=== PATIENT | male | born 1980 | race Caucasian/White ===

== ENCOUNTER 2024-06-08 07:42 | Emergency (ER) | payer BC, SELFPAY ==
[2024-06-08 07:46] VITALS: BP 132/88
[2024-06-08 08:01] VITALS: BMI 32.6
--- NOTE | 2024-06-08 08:09 | ED.GENMED ---
History of Present Illness
General
Chief Complaint: Flank Pain
Source: patient
Exam Limitations: none
Time Seen by Provider: 06/08/24 08:01
History of Present Illness
History of Present Illness:
See MDM
Past History
Past History
ED Past Medical History: Other (Kidney stones)
ED Past Surgical History: None
Social History
Tobacco: Non-smoker
Alcohol: None
Phy Exam
Physical Exam
Physical Exam:
See MDM
Course
Orders/Labs/Results
Orders:
Orders
06/08/24 08:06
CT Abd/pel Without Iv Or Oral Urgent
Comment:
Reason For Exam: Left flank pain
06/08/24 08:08
Ketorolac [Toradol] 30 mg IM NOW STA
Ondansetron Orally Disint [Zofran Odt (Orally Disintegrating)] 4 mg PO NOW STA
Oxycodone/Acetaminophen [Percocet 5/325] 1 tablet PO NOW STA
Tamsulosin [Flomax] 0.4 mg PO NOW STA
06/08/24 08:09
Ketorolac [Toradol] 30 mg .ROUTE .STK-MED ONE
06/08/24 08:10
Oxycodone/Acetaminophen [Percocet 5/325] 1 tablet .ROUTE .STK-MED ONE
Tamsulosin [Flomax] 0.4 mg .ROUTE .STK-MED ONE
06/08/24 08:17
Urinalysis Reflex To Culture Urgent
Date Specimen was Collected: 06/08/24
Time Specimen was Collected: 08:02
Urine Microscopic Reflex Cult Urgent
Abnormal Lab Results
06/08/24
08:17
Ur Occult Blood Reflex 4+ A
(Negative)
Urine Urobilinogen 2+ A
(Neg - 1+)
06/08/24 08:02
06/08/24 08:02
Vital Signs
Initial and Last Documented VS:
Initial Vital Signs
Temp Pulse Resp BP Pulse Ox
97.5 F 70 16 132/88 98
06/08/24 07:46 06/08/24 07:46 06/08/24 07:46 06/08/24 07:46 06/08/24 07:46
Last Documented Vital Signs
Temp Pulse Resp BP Pulse Ox
97.5 F 64 15 116/63 98
06/08/24 07:46 06/08/24 08:43 06/08/24 08:43 06/08/24 08:43 06/08/24 07:46
MDM/Problems Addressed
Differential Diagnosis Includes:
HPI and MDM Narrative:
44-year-old male presenting with left flank pain. This started earlier this morning. Patient has had kidney stones in the past and states this is very similar presentation. He does note some mild nausea. He has increased urinary frequency but
denies dysuria. Denies fevers. On exam, he is somewhat uncomfortable. He does have left CVA tenderness. Will obtain CT looking for evidence of kidney stone. Will obtain urinalysis.
Physical exam
General: Mildly uncomfortable but ambulating without difficulty
HEENT: protecting airway
Neck: appears supple
CV: No evidence of cyanosis
Resp: No accessory muscle use
Abd: Non-distended
Back: Mild left CVA tenderness. No rash noted
Extremities: No deformities
Neuro: alert
Psych: Normal affect
Skin: Intact
Problems Addressed including Acute and Chronic Conditions affecting care:
1. Left flank pain
Acuity: acute
Prognosis: stable
Details: Given the acute onset and the presentation, likely obstructive kidney stone. Will obtain CT and provide pain medicine
Updates
CT consistent with distal ureteral stone. There is mild hydro. Reexamination, patient feeling much better and feels comfortable. Discussed follow-up with urology
Differential Diagnosis (but not limited to): Kidney stone, pyelonephritis, renal colic
Testing considered: KUB
Drug therapy (if applicable): OTC meds, please see d/c instruction regarding Rx drugs
Amount and/or Complexity of Data Reviewed
Clinical info obtained from: Patient
External data reviewed: N/A
Labs I independently reviewed (but not limited to): UA
Radiology: The CT scan was personally and independently reviewed. In addition, official CT report reviewed.
Pulse Ox: not hypoxic
EKG independently reviewed: N/A
Steel Erector: N/A
Critical Care: N/A
Risk of Complication:
Social Determinants of health: Good social support
Discussed with other providers: N/A
Escalation of Care includes Admit/Obs: After being observed in the Emergency Department, pt stable for discharge.
Occasional wrong word or 'sound a like' substitutions may have occurred due to the inherent limitations of voice recognition software. Read the chart carefully and recognize, using context, where substitutions have occurred.
*Critical Care Note
Total Time (30-74mins, 75-104mins- exclusive of procedures): Not Applicable
ED Attending Note
-
Portions of this chart may have been created with voice recognition software.� Occasional wrong word or��sound alike� substitutions may have occurred due to the inherent limitations of voice recognition software.
Discharge Plan
Departure
Patient Disposition: Home (Routine Discharge)
Date of Disposition: 06/08/24
Time of Disposition: 09:22
Patient with high blood pressure during this ER visit?: No
Discharge Problem:
Kidney stone on left side
Instructions: Kidney Stones (DC)
Prescriptions:
New
tamsulosin [Flomax] 0.4 mg Capsule
0.4 mg PO DAILY Qty: 14 0RF
diclofenac potassium 50 mg tablet
50 mg PO BID Qty: 20 0RF
ondansetron 4 mg Tablet,Disintegrating
4 mg PO BIDPRN PRN (Reason: nausea/vomiting) Qty: 10 0RF
oxycodone 5 mg tablet
5 mg PO Q8H PRN (Reason: Pain) Qty: 7 0RF
Referrals:
Alverto Huber, [Family Provider] -
Stand Alone Forms: Return to Work
Activity Restrictions/Additional Instructions:
Please return for any worsening symptoms.
You may return at any time if you have further concerns.
Please follow up with your urologist.
Interventions
Interventions:
*Risk Screen - Suicide Last Done: 06/08/24 07:46
*General Assessment Last Done: 06/08/24 07:46
*Neglect/Abuse Screening Last Done: 06/08/24 07:46
ED- Fall Risk Assessment Last Done: 06/08/24 08:20
*ED COVID-19 Vaccine History Last Done: 06/08/24 07:46
AE-Acxouf-Opiokjdyom Assessment Last Done: 06/08/24 08:01
ED-Male Genitourinary Assessment Last Done: 06/08/24 08:01
Discharge Date and Time
Print Language: CYPRIOT
[2024-06-08] MEDS: FLOMAX 0.4 MG PO (08:12)
[2024-06-08] MEDS: PERCOCET 5/325 1 TABLET PO (08:12)
[2024-06-08] MEDS: TORADOL 30 MG IM (08:14)
[2024-06-08] MEDS: ZOFRAN ODT (ORALLY DISINTEGRATING) 4 MG PO (08:16)
[2024-06-08 08:43] VITALS: BP 116/63
[2024-06-08 08:56] LABS: Urine Albumin Trace (Neg - Trace); Urine Bilirubin Negative (Negative); Urine Character Clear (Clear); Urine Color Yellow; Urine Glucose Negative (Negative); Urine Ketone Negative (Negative); Urine Leukocyte Negative (Negative); Urine Nitrite Negative (Negative); Urine Occult Blood 4+ (Negative); Urine Specific Gravity 1.015 (<1.030); Urine Urobilinogen 2+ (Neg - 1+)
[2024-06-08 10:16] LABS: Urine Mucus Many
[2024-06-08 10:18] LABS: Urine Red Blood Cell >100 /HPF (0-2); Urine White Cell 0-2 /HPF (0-5)
== END 2024-06-08 09:42 | disposition home or self-care (01) ==
LOC: EMR 07:42
PROVIDERS: EMERGENCY PHYSICIAN Student in an Organized Health Care Education/Training Program; FAMILY PHYSICIAN Family Medicine
DX: N20.0 Calculus of kidney (principal)
CPT/HCPCS: 96372; 99284; 74176; 80053; 81003; 81015; 85025

== ENCOUNTER 2024-10-15 13:48 | Emergency (ER) | payer BC, SELFPAY ==
[2024-10-15 13:52] VITALS: BP 129/72
--- NOTE | 2024-10-15 14:21 | ED.GENMED ---
History of Present Illness
General
Chief Complaint: Flank Pain
Time Seen by Provider: 10/15/24 14:09
History of Present Illness
History of Present Illness:
44-year-old male presents to the emergency department for evaluation of acute onset of right flank pain. Prior history of kidney stones, states pain feels similar but much more severe. No fevers or chills. Received Zofran and fentanyl and route
Past History
Past History
ED Past Medical History: Other (Kidney stones)
ED Past Surgical History: None
Social History
Tobacco: Non-smoker
Alcohol: None
Review of Systems
Review of Systems
Allergies reviewed?: Yes
All Other Systems: ROS reviewed and negative except as documented in HPI and ROS
Phy Exam
Physical Exam
Physical Exam:
GEN: Well appearing, NAD, WDWN
HEENT: Oral mucosa moist, no scleral icterus
Cardiac: Regular rate
Lung: No respiratory distress, no tachypnea
MSK: No gross deformity or injuries
Skin: Good color, no pallor or jaundice, no rashes
Neuro: AO x3, moves all extremities freely
Psych: Calm, cooperative
Course
Orders/Labs/Results
Orders:
Orders
10/15/24 14:06
CBC/With Diff [Complete Blood Count/With Diff] Urgent
Comprehensive Metabolic Panel Urgent
Urinalysis Reflex To Culture Urgent
Date Specimen was Collected: 10/15/24
Time Specimen was Collected: 14:05
Urine Microscopic Reflex Cult Urgent
10/15/24 14:20
CT Abd/pel Without Iv Or Oral Urgent
Comment:
Reason For Exam: R flank pain
Ketorolac [Toradol] 15 mg IV NOW STA
10/15/24 15:57
Tamsulosin [Flomax] 0.4 mg PO NOW STA
10/15/24 16:20
Ketorolac [Toradol] 15 mg .ROUTE .STK-MED ONE
10/15/24 16:21
Ketorolac [Toradol] 15 mg IV NOW STA
Abnormal Lab Results
10/15/24
14:06
RBC 4.68 L 10^6/uL
(4.70-6.10)
MCH 32.9 H pg
(27.0-31.0)
MPV 10.6 H fL
(7.4-10.4)
Absolute Monos (auto) 0.7 H 10^3/uL
(0.1-0.6)
Lymphocytes % 17.9 L %
(20.5-51.1)
Monocytes % 9.7 H %
(1.7-9.3)
Carbon Dioxide 21 L mmol/L
(22-30)
Glucose 130 H mg/dl
(70-99)
Urine Ketones 3+ A
(Negative)
Ur Occult Blood Reflex 3+ A
(Negative)
Urine RBC 50-60 A /HPF
(0-2)
Urine Bacteria (Reflex) Few A
(Negative)
10/15/24 14:06
10/15/24 14:06
Vital Signs
Initial and Last Documented VS:
Initial Vital Signs
Temp Pulse Resp BP Pulse Ox
98.1 F 64 16 129/72 99
10/15/24 13:52 10/15/24 13:52 10/15/24 13:52 10/15/24 13:52 10/15/24 13:52
Last Documented Vital Signs
Temp Pulse Resp BP Pulse Ox
98.1 F 71 15 129/72 99
10/15/24 13:52 10/15/24 17:04 10/15/24 17:04 10/15/24 13:52 10/15/24 17:04
MDM/Problems Addressed
MDM/Problems Addressed:
Offered to withhold imaging given history of kidney stones and known similar symptoms, patient is never required ureteral stenting in the past. He requested imaging due to severe pain. Imaging revealed a 3 mm distal ureteral stone, pain
well-controlled in the ED, discussed supportive care
*Critical Care Note
Total Time (30-74mins, 75-104mins- exclusive of procedures): Not Applicable
ED Attending Note
-
Portions of this chart may have been created with voice recognition software.� Occasional wrong word or��sound alike� substitutions may have occurred due to the inherent limitations of voice recognition software.
Discharge Plan
Departure
Patient Disposition: Home (Routine Discharge)
Date of Disposition: 10/15/24
Time of Disposition: 16:12
Patient with high blood pressure during this ER visit?: No
Discharge Problem:
Ureterolithiasis
Instructions: Kidney Stones (DC)
Prescriptions:
New
ketorolac 10 mg tablet
10 mg PO Q8H PRN (Reason: Pain) Qty: 15 0RF
Rx Instructions:
maximum total duration of 5 days from all oral, intranasal, or parenteral formulations
ondansetron 4 mg tablet,disintegrating
4 mg PO TIDPRN PRN (Reason: nausea/vomiting) Qty: 10 0RF
tamsulosin [Flomax] 0.4 mg capsule
0.4 mg PO HS Qty: 10 0RF
No Action
tamsulosin [Flomax] 0.4 mg Capsule
0.4 mg PO DAILY Qty: 14 0RF
diclofenac potassium 50 mg tablet
50 mg PO BID Qty: 20 0RF
ondansetron 4 mg Tablet,Disintegrating
4 mg PO BIDPRN PRN (Reason: nausea/vomiting) Qty: 10 0RF
oxycodone 5 mg tablet
5 mg PO Q8H PRN (Reason: Pain) Qty: 7 0RF
Referrals:
UNKNOWN - PT DOES,NOT KNOW [Family Provider] -
Interventions
Interventions:
*Risk Screen - Suicide Last Done: 10/15/24 13:52
*General Assessment Last Done: 10/15/24 13:52
*Neglect/Abuse Screening Last Done: 10/15/24 13:52
*ED- Fall Risk Assessment Last Done: 10/15/24 14:17
*ED COVID-19 Vaccine History Last Done: 10/15/24 14:17
*Nursing Disposition Last Done: 10/15/24 17:04
KC-Wluftz-Oqmpbqzxyx Assessment Last Done: 10/15/24 14:16
ED-Male Genitourinary Assessment Last Done: 10/15/24 14:16
Discharge Date and Time
Discharge Date/Time: 10/15/24 17:05
Print Language: AUSTRALIAN
[2024-10-15] MEDS: TORADOL 15 MG IV ×2 (14:22→16:23)
[2024-10-15 14:23] LABS: % Basophils 0.4 % (0-2); % Eosinophils 1.2 % (0-6); % Immature Granulocytes 0.3 % (0-0.5); % Lymphocytes 17.9 % (20.5-51.1); % Monocytes 9.7 % (1.7-9.3); % Neutrophils 70.5 % (42.2-75.2); Absolute Eosinophils 0.1 10^3/uL (0-0.7); Absolute Lymphocytes 1.4 10^3/uL (1.2-3.4); Absolute Monocytes 0.7 10^3/uL (0.1-0.6); Absolute Neutrophils 5.4 10^3/uL (1.4-6.5); Hemoglobin 15.4 g/dL (13.0-18.0); Mean Corp Hgb Conc. 36.7 g/dL (33.0-37.0); Mean Corpuscular Hgb 32.9 pg (27.0-31.0); Mean Corpuscular Volume 89.7 fL (80.0-94.0); Mean Platelet Volume 10.6 fL (7.4-10.4); Nucleated Red Blood Cells % 0 % (-); Platelet Count 259 10^3/uL (130-400); Red Blood Cell Count 4.68 10^6/uL (4.70-6.10); Red Cell Dist. Width 12.3 % (11.5-14.5); White Blood Cell Count 7.6 10^3/uL (4.8-10.8)
[2024-10-15 14:33] LABS: ALT (SGPT) 15 U/L (0-50); AST (SGOT) 23 U/L (17-59); Albumin 4.1 g/dl (3.5-5.0); Alkaline Phosphatase 65 U/L (38-126); Blood Urea Nitrogen 12 mg/dl (9-20); Carbon Dioxide 21 mmol/L (22-30); Chloride 106 mmol/L (98-107); Glucose 130 mg/dl (70-99); Potassium 3.9 mmol/L (3.5-5.1); Sodium 140 mmol/L (135-145); Total Protein 6.7 g/dl (6.3-8.2); eGFR > 60.00
[2024-10-15 16:00] LABS: Urine Albumin Negative (Neg - Trace); Urine Bilirubin Negative (Negative); Urine Character Clear (Clear); Urine Color Yellow; Urine Glucose Negative (Negative); Urine Ketone 3+ (Negative); Urine Leukocyte Negative (Negative); Urine Nitrite Negative (Negative); Urine Occult Blood 3+ (Negative); Urine Urobilinogen Negative (Neg - 1+)
[2024-10-15 16:14] LABS: Urine Bacteria Few (Negative); Urine Red Blood Cell 50-60 /HPF (0-2); Urine White Cell 0-2 /HPF (0-5)
[2024-10-15] MEDS: FLOMAX 0.4 MG PO (16:23)
== END 2024-10-15 17:05 | disposition home or self-care (01) ==
LOC: EMR 13:48
PROVIDERS: Emergency Medicine; EMERGENCY PHYSICIAN Emergency Medicine
DX: N20.2 Calculus of kidney with calculus of ureter (principal)
CPT/HCPCS: 96374; 96376; 99284; 74176; 80053; 81003; 81015; 85025